=== PATIENT | male | born 1985 | race Caucasian/White ===

== ENCOUNTER 2022-03-26 14:13 | Emergency (ER) | payer OTHER ==
[~2022-03-26] VITALS: Ht 188 cm; Wt 124.7 kg
== END 2022-03-26 20:27 | disposition home or self-care (01) ==
LOC: ER 14:13
DX: N39.0 Urinary tract infection, site not specified (principal); N23 Unspecified renal colic

== ENCOUNTER 2022-10-22 06:08 | Emergency (ER) | payer OTHER ==
[~2022-10-22] VITALS: Ht 185.4 cm; Wt 124.7 kg
[2022-10-22] MEDS ORDERED: ORPHENADRINE C100 MG PO ×2 (15:37→15:53)
[2022-10-22] MEDS ORDERED: DICLOFENAC POTA50 MG PO (15:53)
== END 2022-10-22 15:54 | disposition home or self-care (01) ==
LOC: ER 06:08
DX: M89.8X1 Other specified disorders of bone, shoulder (principal); R10.11 Right upper quadrant pain; Z20.822 Contact with and (suspected) exposure to COVID-19